=== PATIENT | female | born 1970 | race Caucasian/White ===

== ENCOUNTER 2016-08-15 14:03 | Outpatient (CLI) | payer MEDICAID | END 2016-08-15 14:04 | disposition home or self-care (01) | DX: E03.9 Hypothyroidism, unspecified (principal) ==

== ENCOUNTER 2016-11-01 08:31 | Outpatient (CLI) | payer MEDICAID | END 2016-11-01 23:59 | DX: E03.9 Hypothyroidism, unspecified (principal) ==

== ENCOUNTER 2018-09-18 08:00 | Outpatient (CLI) | payer MEDICAID ==
[2018-09-18 13:33] LABS: BASOPHILS % (AUTO) 0.9 %; EOSINOPHILS # (AUTO) 0.2 10^3/uL (0.0-0.7); EOSINOPHILS % (AUTO) 3.2 %; HGB - HEMOGLOBIN 13.2 g/dL (12.0-16.0); LYMPHOCYTES # (AUTO) 1.8 10^3/uL (1.5-3.5); LYMPHOCYTES % (AUTO) 36.9 %; MEAN CORPUSCULAR HEMOGLOBIN 31.8 pg (27.0-31.0); MEAN CORPUSCULAR VOLUME 93.5 fL (81.0-99.0); MEAN PLATELET VOLUME 9.6 fL (7.9-10.8); MONOCYTES # (AUTO) 0.5 10^3/uL (0.0-1.0); NEUTROPHILS # (AUTO) 2.5 10^3/uL (1.5-6.6); PLT - PLATELET COUNT 215 10^3/uL (130-450); RED BLOOD COUNT 4.17 10^6/uL (4.20-5.40); RED CELL DISTRIBUTION WIDTH 14.6 % (12.0-15.0)
[2018-09-18 14:41] LABS: ALBUMIN/GLOBULIN RATIO 1.2 (1.0-2.2); ALKALINE PHOSPHATASE 40 IU/L (42-121); ALT ALANINE AMINOTRANSFERASE < 10 IU/L (10-60); AST ASPARTATE AMINOTRANSFERASE 13 IU/L (10-42); BILIRUBIN,TOTAL 0.6 mg/dL (0.2-1.0); BUN - BLOOD UREA NITROGEN 9 mg/dL (6-20); CARBON DIOXIDE - CO2 25 mmol/L (21-32); CHLORIDE 104 mmol/L (101-111); CHOL/HDL RATIO 2.7 (<4.4); CHOLESTEROL 139 mg/dL; CREATININE 0.7 mg/dL (0.4-1.0); GFR - MDRD 90 (>89); GLUCOSE 91 mg/dL (70-100); HDL CHOLESTEROL 51 mg/dL; SODIUM 137 mmol/L (135-145); TOTAL PROTEIN 7.3 g/dL (6.7-8.2)
[2018-09-18 15:00] LABS: LDL CHOLESTEROL,DIRECT 135 mg/dL; LDLD/HDL RATIO 2.6 (<4.4)
== END 2018-09-18 23:59 | disposition home or self-care (01) ==
LOC: LAB.N 08:00
PROVIDERS: ATTEND Nurse Practitioner Gerontology
DX: E03.9 Hypothyroidism, unspecified (principal); Z13.9 Encounter for screening, unspecified
CPT/HCPCS: 36415; 80053; 80061; 83721; 84443; 85025

== ENCOUNTER 2019-02-11 09:55 | Outpatient (CLI) | payer MEDICAID ==
--- NOTE | 2019-02-11 14:57 | Ultrasound Report ---
Reason: HYPOTHYROID Procedure Date: 02/11/2019 Accession Number: [id number] / [id number] Procedure: US - Head or Neck Soft Tissue CPT Code: FULL RESULT: EXAM: THYROID ULTRASOUND EXAM DATE: 02/11/2019 10:48 AM. CLINICAL HISTORY: Hypothyroidism, intermittent dysphagia. COMPARISON: None. TECHNIQUE: Real time sonographic imaging of the thyroid was performed by the claim manager. Multiple patient support representative static images were saved for review. FINDINGS: THYROID GLAND: Right Lobe: 5.9 x 0.8 x 1.4 cm, volume 3.2 cc. Mildly atrophic gland with heterogeneous parenchyma. No hypervascularity. Right Lobe Nodules: None. Left Lobe: 5.0 x 1.0 x 1.3 cm, volume 3.0 cc. Mildly atrophic gland with heterogeneous parenchyma. No hypervascularity. Left Lobe Nodules: 3 small echogenic nodules form a cluster in the lower pole measuring 6, 3 and 3 mm respectively. Isthmus: 0.4 cm AP. Isthmic Nodules: None. LYMPH NODES: No adenopathy demonstrated in the central or lateral compartment. OTHER: None. IMPRESSION: 1. Cluster of 3 echogenic left lower pole thyroid nodules none of which meet NIRMAL criteria for biopsy. Sonographic follow-up could be considered however. 2. Thyroid gland mildly atrophic and heterogeneous diffusely suggesting sequela of prior thyroiditis. Management recommendations are based on 2015 [place] [employer] Management Guidelines for Adult Patients with Thyroid Nodules and Differentiated Thyroid Cancer. [facility]
== END 2019-02-11 09:56 | disposition home or self-care (01) ==
LOC: DI 09:55
PROVIDERS: ATTEND Family Medicine
DX: E03.9 Hypothyroidism, unspecified (principal); E04.2 Nontoxic multinodular goiter
CPT/HCPCS: 76536

== ENCOUNTER 2019-02-17 08:00 | Outpatient (CLI) | payer MEDICAID ==
[2019-02-17 19:36] LABS: T4 (THYROXINE) 8.28 ug/dL (6.09-12.23)
[2019-02-17 20:12] LABS: THYROID STIMULATING HORMONE 55.96 uIU/mL (0.34-5.60)
== END 2019-02-17 23:59 | disposition home or self-care (01) ==
LOC: LAB.N 08:00
PROVIDERS: ATTEND Family Medicine
DX: E03.9 Hypothyroidism, unspecified (principal)
CPT/HCPCS: 36415; 84436; 84443; 84481

== ENCOUNTER 2019-07-31 09:42 | Emergency (ER) | payer MEDICAID ==
--- NOTE | 2019-07-31 11:50 | ED Physician Documentation ---
PD HPI SKIN - Stated complaint Stated Complaint: RASH - Chief complaint Chief Complaint: General - History obtained from History obtained from: Patient, Family - History of Present Illness Timing - onset: Yesterday Timing - duration: Days (2) Timing - details: Gradual onset, Still present Location: Neck, LUE, RLE, LLE Quality / character: Itchy, Discolored, Raised, Crusted, Swelling Improved by: Benadryl Contributing factors: Other (stress with moving) Similar symptoms before: Diagnosis (drug eruption) Recently seen: Not recently seen - Additional information Additional information: Previously well 49-year-old female has developed a rash to the dorsum of her hands and this has stayed where it is that and it is erythematous with some crusting to the top and it is itchy. She felt thought that the Benadryl helped a little bit with the itching but it did not make the rash go away. The rash has progressed. The patient has not had this particular rash previously she is found there is some on her neck the dorsum of her hands and forearms and over her feet. She denies any new medications or soaps she is moving and she did think that a [place] that she had been given might of been a culprit. It did not seem right. 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 - Present Medications Home Medications: Ambulatory Orders Medication Instructions Recorded Confirmed Azithromycin [Zithromax] 250 mg PO DAILY #6 tablet 05/20/15 Levothyroxine [Synthroid] 175 mcg ORAL DAILY 05/20/15 05/20/15 Azithromycin [Zithromax] 250 mg PO DAILY #6 tablet 07/31/19 Mupirocin 1 gm TP BID #22 gm 07/31/19 - Allergies Allergies/Adverse Reactions: Allergies Allergy/AdvReac Type Severity Reaction Status Date / Time Penicillins Allergy Rash Verified 07/31/19 09:58 Tetracyclines Allergy Emesis Verified 07/31/19 09:58 - Social History Does the pt smoke?: Yes Smoking Status: Current every day smoker Does the pt have substance abuse?: No PD ED PE NORMAL - Vitals Vital signs reviewed: Yes (hypertensive ) - General General: Alert and oriented X 3, No acute distress, Well developed/nourished - HEENT HEENT: Atraumatic, PERRL, EOMI - Neck Neck: Supple, no meningeal sign, No bony TTP - Respiratory Respiratory: No respiratory distress - Derm Derm: Normal color, Warm and dry, Other (There is an erythematous rash to the dorsum of both hands with round spots about 7mm in size and with a crusting to the top like impetigo) Results - Vitals Vitals: Vital Signs - 24 hr 07/31/19 09:59 Temperature 36.9 C Heart Rate 61 Respiratory 18 Rate Blood Pressure 158/92 H O2 Saturation 98 Oxygen O2 Source Room air PD MEDICAL DECISION MAKING - ED course Complexity details: considered differential, d/w patient, d/w family ED course: 49-year-old female with a rash that appears to be impetigo. Departure - Departure Disposition: 01 Home, Self Care Clinical Impression: Impetigo Condition: Stable Instructions: Impetigo Follow-Up: Esme Weber ARNP [Primary Care Provider] - Prescriptions: Azithromycin [Zithromax] 250 mg PO DAILY #6 tablet Mupirocin 1 gm TP BID #22 gm
[2019-07-31 12:01] VITALS: BP 148/88
== END 2019-07-31 11:59 | disposition home or self-care (01) ==
LOC: ED 09:42
DX: L01.00 Impetigo, unspecified (principal); E03.9 Hypothyroidism, unspecified
CPT/HCPCS: 99282; 99284